=== PATIENT | male | born 1995 | race Caucasian/White ===

== ENCOUNTER 2021-02-13 12:46 | Emergency (ER) | payer OTHER ==
[~2021-02-13 12:46] MED LIST: BENTYL 20MG TAB20 MG PO; IMODIUM A-1 MG/7.5 M PO; NORCO 5-325 TA1 EACH PO; POTASSIUM20 MEQ/11 PO
== END 2021-02-13 13:19 | disposition left against medical advice (07) ==
LOC: ER1 12:46
DX: Z53.21 Procedure and treatment not carried out due to patient leaving prior to being seen by health care provider (principal)

== ENCOUNTER 2021-08-04 10:12 | Emergency (ER) | payer SELFPAY | END 2021-08-04 12:01 | disposition left against medical advice (07) | LOC: ER1 10:12 | DX: B27.90 Infectious mononucleosis, unspecified without complication (principal); F17.210 Nicotine dependence, cigarettes, uncomplicated | CPT/HCPCS: 99282 ==

== ENCOUNTER 2021-09-12 23:20 | Emergency (ER) | payer SELFPAY | END 2021-09-12 23:32 | disposition left against medical advice (07) | LOC: ER1 23:20 | DX: Z53.21 Procedure and treatment not carried out due to patient leaving prior to being seen by health care provider (principal) ==

== ENCOUNTER 2021-09-13 00:02 | Emergency (ER) | payer SELFPAY ==
[2021-09-13 00:31] LABS: HEMOGLOBIN 14.5 gm/dl (14.0-17.5); RED BLOOD COUNT 4.51 M/UL (4.20-5.50); WHITE BLOOD COUNT 8.2 K/UL (4.5-11.0)
[2021-09-13 00:53] LABS: BUN/CREATININE RATIO 14 (0-10)
== END 2021-09-13 01:52 | disposition home or self-care (01) ==
LOC: ER1 00:02
PROVIDERS: Family Medicine
DX: F15.10 Other stimulant abuse, uncomplicated (principal); F12.10 Cannabis abuse, uncomplicated; F17.200 Nicotine dependence, unspecified, uncomplicated
CPT/HCPCS: 71045; 80053; 80307; 81001; 82550; 82553; 83874; 84439; 84443; 84484; 85025; 85379; 93005; 96374; 96375; 99285